=== PATIENT | female | born 1995 | race African-American/Black ===

== ENCOUNTER 2023-10-18 20:49 | Inpatient (IN) | payer SELFPAY ==
[2023-10-18 21:09] LABS: BASOPHILS PERCENT AUTO 0.3 % (0.0-1.0); EOSINOPHILS ABSOLUTE AUTO 0.1 K/mm3 (0.0-0.4); EOSINOPHILS PERCENT AUTO 0.9 % (0.0-6.0); HEMATOCRIT 42.9 % (37.0-47.0); IMMATURE GRAN ABSOLUTE AUTO 0.09 K/mm3 (0.00-0.05); IMMATURE GRAN PERCENT AUTO 0.7 % (0.0-0.4); LYMPHOCYTES ABSOLUTE AUTO 5.8 K/mm3 (1.0-4.8); LYMPHOCYTES PERCENT AUTO 45.5 % (24.0-44.0); MEAN CORPUSCULAR HEMOGLOBIN 30.5 pg (28.0-32.0); MEAN CORPUSCULAR HGB CONC 32.6 g/dl (32.0-36.0); MEAN CORPUSCULAR VOLUME 93.5 fl (83.0-99.0); MONOCYTES PERCENT AUTO 7.9 % (0.0-8.0); NEUTROPHILS ABSOLUTE AUTO 5.7 K/mm3 (1.8-7.7); NEUTROPHILS PERCENT AUTO 44.7 % (41.0-71.0); PLATELET COUNT,PLT 369 K/mm3 (150-400); RED BLOOD CELL COUNT 4.59 M/mm3 (4.10-5.30); WHITE BLOOD CELL COUNT,WBC 12.71 K/mm3 (3.9-11.3)
[2023-10-18 21:22] LABS: A/G RATIO 0.9 (1-2); ALBUMIN 3.7 g/dl (3.4-5.0); ANION GAP 14.4 (5-15); BILIRUBIN TOTAL 0.3 mg/dL (0.2-1.0); BUN/CREATININE RATIO 13.3 (14-18); CALCIUM 8.6 mg/dL (8.5-10.1); CREATININE 0.9 mg/dL (0.55-1.02); EST CRCL DRUG DOSING (CG) 92.2 mL/min; ETHANOL BLOOD MEDICAL 0.24 gm% (0.00); POTASSIUM,K 3.4 mEq/L (3.5-5.1); PROTEIN TOTAL,TP 7.7 g/dl (6.4-8.2)
[2023-10-18] MEDS: Iopamidol 612 MG/ML 100 ML Bottle IVPUSH ONE (21:54)
[2023-10-18] MEDS: Iopamidol 612 MG/ML 30 ML SDV IVPUSH ONE (21:54)
[2023-10-18] MEDS: Sodium Chloride 0.9% 10 ML Syringe FLUSH PRN (21:54)
[2023-10-18 22:34] LABS: APPEARANCE,URINE CLEAR (Clear); BILIRUBIN,URINE NEGATIVE (Negative); COLOR,URINE LIGHT YELLOW (Yellow); GLUCOSE,URINE NEGATIVE (Negative); KETONES,URINE NEGATIVE (Negative); LEUKOCYTE ESTERASE,URINE 2+ (Negative); NITRITE,URINE NEGATIVE (Negative); OCCULT BLOOD,URINE 1+ (Negative); PROTEIN,URINE 1+ (Negative); UROBILINOGEN,URINE 0.2 (0.2-1.0)
[2023-10-18] MEDS: HYDROmorphone 0.5 MG/0.5 ML Syringe IVPUSH ONE (22:46)
[2023-10-18 22:51] LABS: BACTERIA,URINE MODERATE /hpf (FEW); MUCUS,URINE FEW /hpf (FEW); SQUAMOUS EPITHELIAL CELLS,UR 0-5 /hpf (0-5); WBC,URINE 20-30 /hpf (0-5)
[2023-10-18 23:09] LABS: BARBITURATE SCREEN,URINE NEGATIVE (CUTOFF=200); BENZODIAZEPINES SCREEN,URINE NEGATIVE (CUTOFF=150); BUPRENORPHINE SCREEN,URINE NEGATIVE (CUTOFF=10); METHADONE SCREEN, URINE NEGATIVE (CUTOFF=200); METHAMPHETAMINES SCREEN, URINE NEGATIVE (CUTOFF=500); OXYCODONE SCREEN,URINE NEGATIVE (CUT0FF=100); THC SCREEN,URINE 20 NG/ML PRESUMPTIVE POSITIVE (CUTOFF=50)
[2023-10-18 23:11] LABS: AMPHETAMINES SCREEN, URINE NEGATIVE (CUTOFF=500)
[2023-10-19] MEDS: Lidocaine 1% 10 ML MDV INJECT ONE (00:12)
[2023-10-19] MEDS: HYDROmorphone 0.5 MG/0.5 ML Syringe ONE (01:50)
[2023-10-19] MEDS: HYDROmorphone 0.5 MG/0.5 ML Syringe IVPUSH PRN ×2 (04:11→16:18)
[2023-10-19] MEDS: Acetaminophen 325 MG Tab PO PRN (04:38)
[2023-10-19] MEDS ORDERED: Naloxone 0.4 MG/ML SDV IVPUSH PRN (07:38)
[2023-10-19] MEDS: oxyCODONE 5 MG Tab PO PRN (07:56)
[2023-10-19] MEDS: Ibuprofen 600 MG Tab PO SCH (07:57)
[2023-10-19] MEDS: Sulfamethoxazole/Trimethoprim 800-160 MG Tab PO SCH (08:01)
[2023-10-19] MEDS: Heparin Sodium 5,000 Units/ML Vial SUBCUT SCH (08:02)
[2023-10-19] MEDS: Acetaminophen 325 MG Tab PO SCH (10:27)
[2023-10-20] MEDS: oxyCODONE 5 MG Tab PO PRN (07:23)
[2023-10-20] MEDS: Ondansetron 4 MG/2 ML SDV IVPUSH PRN (13:43)
[2023-10-20 17:46] VITALS: BP 134/76; PULSE 78
== END 2023-10-20 18:38 | disposition home or self-care (01) | DRG 535 ==
LOC: JD.ED 20:49 → JD.MS 23:56 → OBSVTOIN 10-20 10:03
PROVIDERS: ADMIT Surgery; ATTEND Surgery
DX: S32.592A Other specified fracture of left pubis, initial encounter for closed fracture (principal); S32.402A Unspecified fracture of left acetabulum, initial encounter for closed fracture; S32.009A Unspecified fracture of unspecified lumbar vertebra, initial encounter for closed fracture; V89.2XXA Person injured in unspecified motor-vehicle accident, traffic, initial encounter
CPT/HCPCS: 12004; 12034; 36415; 70450; 70450-26; 71045; 71045-26; 71260; 71260-26; 72125; 72125-26; 72170; 72170-26; 73552-50; 735525026; 735902650; 73590-50; 74177; 74177-26; 80053; 80306; 80307; 81001; 83690; 84703; 85025; 94760; 96374; 97110-GP; 97116-GP; 97162-GP; 97530-GP; 99285; 99285-25; A9270-GY; J1170; J1644; J2405; J3490; Q9967